=== PATIENT | female | born 1940 | race Asian ===

== ENCOUNTER 2021-11-14 16:03 | Emergency (ER) | payer OTHER ==
[2021-11-14 16:05] VITALS: BP_SYST 159
[2021-11-14] MEDS ORDERED: ACETAMINOPHEN 500 MG TABLET PO ONE (16:30)
[2021-11-14] MEDS ORDERED: NAPR-1172 PO (17:07)
== END 2021-11-14 17:14 | disposition home or self-care (01) ==
LOC: SED 16:03
DX: S50.02XA Contusion of left elbow, initial encounter (principal); E78.5 Hyperlipidemia, unspecified; I10 Essential (primary) hypertension; W01.0XXA Fall on same level from slipping, tripping and stumbling without subsequent striking against object, initial encounter; Y93.89 Activity, other specified; Y92.89 Other specified places as the place of occurrence of the external cause; Y99.8 Other external cause status
CPT/HCPCS: 99283